=== PATIENT | male | born 1950 | race American Indian/Alaskan Native ===

== ENCOUNTER 2017-11-08 11:17 | Day surgery (SDC) | payer BC ==
[2017-11-08] MEDS ORDERED: MYDRIACYL ONE (12:06)
[2017-11-08] MEDS ORDERED: NEOFRIN ONE (12:06)
[2017-11-08] MEDS ORDERED: IOPIDINE ONE (12:07)
[2017-11-08] MEDS ORDERED: MYDRIACYL OS ONE (12:12)
[2017-11-08] MEDS ORDERED: IOPIDINE OS ONE (12:12)
[2017-11-08] MEDS ORDERED: NEOFRIN OS ONE (12:12)
[2017-11-08 12:24] VITALS: BP 123/73
== END 2017-11-08 11:18 | disposition home or self-care (01) ==
LOC: OR 11:17
PROVIDERS: ATTEND Specialist
DX: H26.492 Other secondary cataract, left eye (principal); I10 Essential (primary) hypertension; E78.00 Pure hypercholesterolemia, unspecified; F17.200 Nicotine dependence, unspecified, uncomplicated; M19.90 Unspecified osteoarthritis, unspecified site; Z98.42 Cataract extraction status, left eye; Z98.41 Cataract extraction status, right eye; Z98.890 Other specified postprocedural states
CPT/HCPCS: 82962

== ENCOUNTER 2017-12-20 11:40 | Day surgery (SDC) | payer BC ==
[~2017-12-20 11:40] MED LIST: AK-Dilate ONE; IOPIDINE ONE; MYDRIACYL ONE
[2017-12-20] MEDS ORDERED: NEOFRIN OD ONE (12:06)
[2017-12-20] MEDS ORDERED: MYDRIACYL OD ONE (12:06)
[2017-12-20] MEDS ORDERED: IOPIDINE OD ONE (12:06)
[2017-12-20 13:03] VITALS: BP 129/75
== END 2017-12-20 11:41 | disposition home or self-care (01) ==
LOC: OR 11:40
PROVIDERS: ATTEND Specialist
DX: H26.491 Other secondary cataract, right eye (principal); I10 Essential (primary) hypertension; E78.00 Pure hypercholesterolemia, unspecified; M13.879 Other specified arthritis, unspecified ankle and foot; B19.10 Unspecified viral hepatitis B without hepatic coma; F17.200 Nicotine dependence, unspecified, uncomplicated; Z79.899 Other long term (current) drug therapy; Z98.42 Cataract extraction status, left eye; Z98.41 Cataract extraction status, right eye; Z98.890 Other specified postprocedural states
CPT/HCPCS: 82962